=== PATIENT | male | born 1950 | race Caucasian/White ===

== ENCOUNTER 2018-03-27 14:32 | Emergency (ER) | payer MEDICARE ==
[2018-03-27] MEDS ORDERED: Sodium Chloride 0.9% 1,000 ML BAG ONE (15:00)
[2018-03-27] MEDS ORDERED: Ketorolac Tromethamine 30 MG/ML VIAL ONE (16:50)
[2018-03-27] MEDS ORDERED: traMADol HCl 50 MG TAB ONE (16:50)
[2018-03-27 17:01] LABS: Bilirubin Small (Negative); Blood, Urine Negative (Negative); Clarity Clear (Clear); Glucose, Urine (Dipstick) Negative (Negative); Leukocyte Negative (Negative); Nitrite Negative (Negative); Protein, Urine (Dipstick) 30 mg/dL (Neg-Trace); Specific Gravity, Urine 1.025 (1.005-1.030); Urobilinogen 0.2 mg/dL (0.2-1.0)
[2018-03-27] MEDS ORDERED: Benzonatate 100 MG CAP ONE (17:03)
[2018-03-27 17:09] LABS: Bacteria/HPF None Seen HPF (None Seen); Crystals/HPF 1+ AMORPH PHOS HPF (Negative); Other Microscopic Description C&S SET UP; RBC/HPF 0-3 HPF (0-3); Squamous Epithelial 0-3 HPF (0-3); WBC/HPF 0-3 HPF (0-3)
[2018-03-27 17:22] LABS: ALT (SGPT) 62 U/L (8-55); AST (SGOT) 67 U/L (5-34); Albumin 4.4 g/dL (3.4-4.8); Alkaline Phosphatase 47 U/L (40-150); Anion Gap 17 mmol/L (10-20); BUN (Urea Nitrogen) 22 mg/dL (8.4-25.7); Bilirubin, Total 0.9 mg/dL (0.2-1.2); Calc. Creatinine Clearance 0 mL/min (70-130); Calcium 9.1 mg/dL (7.8-10.44); Carbon Dioxide 23 mmol/L (23-31); Chloride 102 mmol/L (98-107); Estimated GFR-MDRD 38; Globulin 3.7 g/dL (2.4-3.5); Glucose 129 mg/dL (80-115); Potassium 4.7 mmol/L (3.5-5.1); Protein, Total 8.1 g/dL (5.8-8.1); Sodium 137 mmol/L (136-145)
[2018-03-27 17:23] LABS: Band 2 % (5-11); Hemoglobin 14.9 g/dL (14.0-18.0); Lymphocytes 11 % (21-51); MDiff Complete? YES; Mean Corpuscular Hemoglobin 32.9 pg (27.0-31.0); Mean Corpuscular Volume 94.1 fL (78.0-98.0); Mean Platelet Volume 9.7 fL (7.4-10.4); Monocytes 6 % (0-10); Neutrophil 81 % (42-75); Platelet Count 113 thou/uL (130-400); RBC Distribution Width 11.4 % (11.5-14.5); Red Blood Cell (RBC) Count 4.54 mill/uL (4.70-6.10); White Blood Cell (WBC) Count 4.3 thou/uL (4.8-10.8)
[2018-03-27] MEDS ORDERED: AMOXicillin 250 MG CAP ONE (18:24)
--- NOTE | 2018-03-27 18:32 | RAD ---
ONE VIEW CHEST: 03/27/18 HISTORY: Cough. COMPARISON: None. FINDINGS: Normal cardiac silhouette per technique. Pulmonary vessels and hilum are normal. Costophrenic angles are clear. retrocardiac opacity is noted. No pneumothorax. Overall, lung volumes are diminished due t o poor inspiratory effort. IMPRESSION: Retrocardiac opacity. Left lower lobe infiltrate. Continued surveillance is recommended. POS: [facility]
== END 2018-03-27 18:22 | disposition home or self-care (01) ==
LOC: MADERS 14:32
DX: J20.9 Acute bronchitis, unspecified (principal); I10 Essential (primary) hypertension
CPT/HCPCS: 36415; 71045; 80053; 81001; 85025; 87081; 87086; 87430; 87804; 96361; 96374; J1885; J7050